=== PATIENT | female | born 1955 | race Hispanic/Latino ===

== ENCOUNTER 2025-07-16 11:52 | Emergency (ER) | payer OTHER ==
[2025-07-16] MEDS ORDERED: IOPAMIDOL 370 MG/ML 100 ML INFUS..BTL INJ ONE (13:02)
[2025-07-16] MEDS: KETOROLAC TROMETHAMINE 30 MG/ML VIAL IV STA (13:31)
[2025-07-16] MEDS: FAMOTIDINE 20 MG/2 ML VIAL IV STA (13:31)
[2025-07-16] MEDS: MAGNESIUM/ALUMINUM/SIMETHICONE 30 ML UDC PO ONE (13:31)
[2025-07-16] MEDS: SODIUM CHLORIDE 0.9% 1000ML 1,000 ML IV ONE (13:31)
[2025-07-16 14:30] VITALS: PULSE 74; RESP 18; TEMP 97.3; O2SAT 98
[2025-07-16] MEDS ORDERED: CEPHALEXIN500 MG PO (14:44)
[2025-07-16] MEDS ORDERED: CEPHALEXIN MONOHYDRATE 250 MG CAP ONE (14:54)
[2025-07-16] MEDS ORDERED: CEPHALEXIN 500 MG CAP PO SCH (15:00)
== END 2025-07-16 14:58 | disposition home or self-care (01) ==
LOC: FSED 11:56
DX: R10.30 Lower abdominal pain, unspecified (principal); N30.90 Cystitis, unspecified without hematuria; R11.0 Nausea
CPT/HCPCS: 74177; 80053; 81003; 84484; 85025; 99283; J1308; J1885; J7030; Q9967